=== PATIENT | male | born 1975 | race African-American/Black ===

== ENCOUNTER 2017-04-19 18:16 | Emergency (ER) | payer SELFPAY ==
[~2017-04-19] VITALS: Ht 185.4 cm; Wt 120.0 kg
[~2017-04-19 18:16] MED LIST: GLUCTAB PO; PENI500T PO; PERC5TAB12 PO
[2017-04-19 18:18] VITALS: BP 129/81; PULSE 132; RESP 28; TEMP 98.9; O2SAT 98
--- NOTE | 2017-04-19 18:26 | PD ---
Physical Exam Date Seen by Provider: Apr 19, 2017 Time Seen by Provider: 18:23 Data Data Last Documented VS Vital Signs Date Time Temp Pulse Resp B/P Pulse Ox O2 Delivery O2 Flow Rate FiO2 04/19/17 18:18 98.9 132 28 129/81 98 MDM Supervised Visit with CECILIA: No Narrative Course 41 YO DMT2 M with complaint of dizziness, nausea, dry heaving, shakes x 2 hours. BGL 292 at home 2 hours ago. Metformin this AM. Vitals reviewed. BGL 290 in triage. Patient seen in triage, awaiting bed placement. Malia Amos Apr 19, 2017 18:26
== END 2017-04-19 21:20 | disposition left against medical advice (07) ==
LOC: NED 18:16
DX: R42 Dizziness and giddiness (principal); R11.0 Nausea; Z53.21 Procedure and treatment not carried out due to patient leaving prior to being seen by health care provider
CPT/HCPCS: 99281